=== PATIENT | male | born 1985 | race Caucasian/White ===

== ENCOUNTER 2017-12-05 02:32 | Emergency (ER) | payer BC ==
[~2017-12-05] VITALS: Ht 188 cm; Wt 95.3 kg
--- NOTE | 2017-12-05 03:15 | NUR ---
CALLED PT NAME IN WR. NO RESPONSE AT THIS TIME. WILL F/U
--- NOTE | 2017-12-05 03:24 | NUR ---
CALLED PT NAME. NO RESPONSE AT THIS TIME. PER FAMILY STATES PT IN CAR AT THIS TIME.
--- NOTE | 2017-12-05 04:15 | NUR ---
BIBSELF, C/O LEFT FOOT REDNESS AND SWELLING POSSIBLE BUG BITE YESTERDAY, AMBULATORY TO ER BED 7 PT AOX3 RR EVEN AND UNLABORED. NO SOB NOTED. NAD NOTED. NO NVD AT THIS TIME. PT WAITING FOR MD MACKENZIE. MOTHER AT BEDSIDE
[2017-12-05 04:18] VITALS: BP 118/70
[2017-12-05] MEDS ORDERED: DEXAMETHASONE SOD PHOSPHATE 10 MG/ML VIAL ONE (04:25)
[2017-12-05] MEDS ORDERED: diphenhydrAMINE HCL 50 MG CAPSULE ONE (04:25)
[2017-12-05] MEDS ORDERED: diphenhydrAMINE HCL 25 MG CAPSULE PO ONE (04:30)
[2017-12-05] MEDS ORDERED: DEXAMETHASONE 1 MG TABLET PO ONE (04:30)
[2017-12-05] MEDS ORDERED: DEXAMETHASONE SOD PHOSPHATE 10 MG/ML VIAL MC ONE (05:00)
== END 2017-12-05 04:37 | disposition home or self-care (01) ==
LOC: ER 02:39
DX: S90.862A Insect bite (nonvenomous), left foot, initial encounter (principal); L08.9 Local infection of the skin and subcutaneous tissue, unspecified; W57.XXXA Bitten or stung by nonvenomous insect and other nonvenomous arthropods, initial encounter; Y93.89 Activity, other specified; Y92.89 Other specified places as the place of occurrence of the external cause; Y99.8 Other external cause status
CPT/HCPCS: 99283; A4606; J1100; Z7610; Q0163